=== PATIENT | female | born 1990 | race American Indian/Alaskan Native ===

== ENCOUNTER 2019-03-06 21:44 | Emergency (ER) | payer MEDICAID, OTHER ==
--- NOTE | 2019-03-06 22:35 | Emergency Department Report ---
Blank Doc - Documentation Documentation: 28 y/o female presents to ED c/o 4 hour history of dull throbbing occipital CLAIRE unresponsive to Tylenol. Associated photophobia, nausea,and pelvic cramping. Plan UPT
[2019-03-06 23:15] LABS: HCG Qualitative,Urine Positive (Negative)
[2019-03-07] MEDS ORDERED: TYLENOL PO ONE (01:47)
--- NOTE | 2019-03-07 01:50 | Emergency Department Report ---
ED Dizziness HPI - General Chief Complaint: Dizziness Stated Complaint: DIZZINESS,MIGRAINE Time Seen by Provider: 03/06/19 22:33 Source: patient Mode of arrival: Ambulatory Limitations: No Limitations - History of Present Illness Initial Comments: This is a 28-year-old -Chinese female who presents with a headache and dizziness that started yesterday around 1800. Patient reports pain to the frontal and sensitivity to light. Patient reports last menstrual period 01/10/2019, Ab1 miscarriage. She denies nausea or vomiting, chest pain, s hortness of breath, weakness, visual changes, aura, vaginal bleeding, vaginal discharge, abdominal pain, or low back pain. Complaint: dizziness Onset/Timin -: days(s) Timing: gradual onset Description: lightheadedness History of Same: No History of Trauma: No Severity: moderate Improves With: nothing Worsens With: movement, other (light) Associated Symptoms: denies other symptoms - Related Data Previous Rx's Medication Instructions Recorded Last Taken Type 21/Iron Fu/Folic Acid 1 each PO DAILY #30 tablet 03/07/19 Unknown Rx [ Complete Caplet] Allergies Allergy/AdvReac Type Severity Reaction Status Date / Time No Known Allergies Allergy Unverified 03/06/19 21:45 ED Review of Systems ROS: Stated complaint: DIZZINESS,MIGRAINE Other details as noted in HPI Constitutional: denies: chills, fever ENT: denies: ear pain, throat pain Respiratory: denies: cough, shortness of breath, wheezing Cardiovascular: denies: chest pain, palpitations Gastrointestinal: denies: abdominal pain, nausea, diarrhea Skin: denies: rash, lesions Neurological: vertigo. denies: headache, weakness, paresthesias Psychiatric: denies: anxiety, depression ED Past Medical Hx - Past Medical History Previous Medical History?: No - Surgical History Past Surgical History?: No - Social History Smoking Status: Never Smoker Substance Use Type: None - Medications Home Medications: Home Medications Medication Instructions Recorded Confirmed Last Taken Type 21/Iron Fu/Folic Acid 1 each PO DAILY #30 tablet 03/07/19 Unknown Rx [ Complete Caplet] ED Physical Exam - General Limitations: No Limitations General appearance: alert, in no apparent distress - Respiratory Respiratory exam: Present: normal lung sounds bilaterally. Absent: respiratory distress - Cardiovascular Cardiovascular Exam: Present: regular rate, normal rhythm. Absent: systolic murmur, diastolic murmur, rubs, gallop - GI/Abdominal GI/Abdominal exam: Present: soft, normal bowel sounds. Absent: distended, tenderness, guarding, rebound, rigid, organomegaly, mass, bruit, pulsatile mass, hernia - Neurological Exam Neurological exam: Present: alert, oriented X3, normal gait - Psychiatric Psychiatric exam: Present: normal affect, normal mood - Skin Skin exam: Present: warm, dry, intact, normal color. Absent: rash ED Course Vital Signs 03/06/19 22:32 Temperature 98.4 F Pulse Rate 114 H Respiratory 18 Rate Blood Pressure 146/84 O2 Sat by Pulse 100 Oximetry ED Medical Decision Making - Lab Data Lab Results 03/06/19 Range/Units 23:03 Urine HCG, Qual Positive A (Negative) - Medical Decision Making Patient is stable and was examined by me. Vitals are stable. A urine hCG was obtained. Positive test. Negative abdominal tenderness, vaginal discharge, or back pain. Further workup is not indicated. Patient given Tylenol 1000 mg by mouth once while in ER. Start vitamins for . Referral to [facility] for continued care. No further questions noted by the patient. Discharged home in stable condition. Follow up with PCP in 24- 72 hours. Critical care attestation.: If time is entered above; I have spent that time in minutes in the direct care of this critically ill patient, excluding procedure time. ED Disposition Clinical Impression: Dizziness, confirmed by positive urine test Headache Qualifiers: Headache type: tension-type Headache chronicity pattern: acute headache Intractability: not intractable Qualified Code(s): G44.209 - Tension-type headache, unspecified, not intractable Disposition: DC-01 TO HOME OR SELFCARE Is pt being admited?: No Does the pt Need Aspirin: No Condition: Stable Instructions: (ED), Acute Headache (ED) Additional Instructions: Start taking vitamins daily as prescribed. Take medication at start of headache. Moderate caffeine intake. Eat at scheduled times or 3 meals a day with snacks. Follow-up with [facility] from the referrals below. Prescriptions: 21/Iron Fu/Folic Acid [ Complete Caplet] 1 each PO DAILY #30 tablet Referrals: [facility] [Primary Care Provider] - 3-5 Days [facility] [Provider Group] - 3-5 Days [facility] [Provider Group] - 3-5 Days [facility] [Provider Group] - 3-5 Days Forms: Work/School Release Form(ED) Time of Disposition: 02:14
[2019-03-07 03:22] VITALS: BP 114/76
== END 2019-03-07 02:50 | disposition home or self-care (01) ==
LOC: ED 21:44
DX: O26.891 Other specified pregnancy related conditions, first trimester (principal); R51 Headache; R42 Dizziness and giddiness; Z3A.01 Less than 8 weeks gestation of pregnancy
CPT/HCPCS: 81025